=== PATIENT | male | born 1970 | race Caucasian/White ===

== ENCOUNTER 2016-07-28 14:14 | Emergency (ER) | payer OTHER | END 2016-07-28 16:29 | disposition home or self-care (01) | LOC: ER 14:14 | DX: J45.909 Unspecified asthma, uncomplicated (principal); F41.9 Anxiety disorder, unspecified; K21.9 Gastro-esophageal reflux disease without esophagitis; I10 Essential (primary) hypertension; F17.220 Nicotine dependence, chewing tobacco, uncomplicated; Z91.030 Bee allergy status | CPT/HCPCS: 36415; 96374 ==

== ENCOUNTER 2016-08-14 12:32 | Emergency (ER) | payer OTHER | END 2016-08-14 17:22 | disposition critical access hospital (66) | LOC: ER 12:32 | DX: I26.99 Other pulmonary embolism without acute cor pulmonale (principal); C34.90 Malignant neoplasm of unspecified part of unspecified bronchus or lung; C79.89 Secondary malignant neoplasm of other specified sites; F41.9 Anxiety disorder, unspecified; K21.9 Gastro-esophageal reflux disease without esophagitis; J45.909 Unspecified asthma, uncomplicated; I10 Essential (primary) hypertension; Z91.030 Bee allergy status; Z87.891 Personal history of nicotine dependence; Z79.899 Other long term (current) drug therapy | CPT/HCPCS: 36415; 96361; 96365; 96366; 96375; J1644; Q9967 ==

== ENCOUNTER 2016-08-14 12:32 | Inpatient (IN) | payer OTHER ==
[~2016-08-14] VITALS: Ht 185.4 cm; Wt 129.0 kg
[2016-08-18] MEDS ORDERED: LISINOPRIL-HCT1 EAC2 PO (16:25)
== END 2016-08-18 17:05 | disposition home or self-care (01) | DRG 176 ==
LOC: ER 12:32 → MED 17:23
PROVIDERS: ADMIT Internal Medicine
DX: I26.99 Other pulmonary embolism without acute cor pulmonale (principal); C85.90 Non-Hodgkin lymphoma, unspecified, unspecified site; Z86.711 Personal history of pulmonary embolism; J44.9 Chronic obstructive pulmonary disease, unspecified; I10 Essential (primary) hypertension; G89.4 Chronic pain syndrome; F41.9 Anxiety disorder, unspecified; Z85.89 Personal history of malignant neoplasm of other organs and systems; M54.5 Low back pain; G25.81 Restless legs syndrome; K21.9 Gastro-esophageal reflux disease without esophagitis; Z79.899 Other long term (current) drug therapy; Z91.030 Bee allergy status; F17.220 Nicotine dependence, chewing tobacco, uncomplicated; Z83.3 Family history of diabetes mellitus; Z82.3 Family history of stroke; Z82.49 Family history of ischemic heart disease and other diseases of the circulatory system; Z80.9 Family history of malignant neoplasm, unspecified
CPT/HCPCS: 36415; J1644; Q9967